=== PATIENT | female | born 1930 | race Hispanic/Latino ===

== ENCOUNTER 2016-08-10 07:37 | Outpatient (CLI) | payer MEDICARE ==
[2016-08-10 09:06] LABS: Hematocrit 40.5 % (30.3-42.9); Hemoglobin 13.1 gm/dl (10.1-14.3); Mean Corpuscular HGB Conc 32 % (30-34); Mean Corpuscular Hemoglobin 29 pg (28-32); Mean Corpuscular Volume 89 fl (79-97); Platelet Count 198 K/mm3 (140-440); Red Blood Count 4.55 M/mm3 (3.65-5.03); Red Cell Distribution Width 15.5 % (13.2-15.2); White Blood Count 7.7 K/mm3 (4.5-11.0)
[2016-08-10 09:11] LABS: Albumin 3.8 g/dL (3.9-5); Albumin/Globulin Ratio 1.1 %; Bilirubin,Total 0.3 mg/dL (0.1-1.2); Calcium 9.1 mg/dL (8.4-10.2); Chloride 101.4 mmol/L (98-107); Total Protein 7.2 g/dL (6.3-8.2)
--- NOTE | 2016-08-10 10:52 | Magnetic Resonance Report ---
MRI BRAIN WITHOUT CONTRAST INDICATION: Dementia. COMPARISON: None similar at this institution. FINDINGS: Noncontrast multiplanar and multisequence MRI of the brain demonstrates symmetric, age appropriate ventricles and sulci. Extensive periventricular and white matter FLAIR and T2 weighted hyperintensities may represent small vessel end artery ischemic disease or vasculitis, amongst others. Small lacunar infarcts as 4 mm in left frontal white matter, axial image 19, series 6. No acute infarct, hemorrhage, mass effect or midline shift. No abnormal extra-axial masses or fluid collections. Normal major intracranial vascular flow voids. 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 Otherwise unremarkable posterior fossa with symmetric seventh and eighth nerve complexes and preserved basilar cisterns. Bilateral cataract surgery. Mild bilateral ethmoid and maxillary sinus mucosal thickening. Clear remainder imaged paranasal sinuses and mastoid air cells. Mild nasal septal deviation. Normal midline structures without evidence of Chiari malformation. CONCLUSION: No acute intracranial MRI abnormality, though extensive white matter microvascular changes noted and few other incidental findings, as above. Please correlate. Thank you for the opportunity to participate in this patient's care.
== END 2016-08-10 07:38 | disposition home or self-care (01) ==
LOC: MRI 07:37
PROVIDERS: ATTEND Specialist
DX: I63.9 Cerebral infarction, unspecified (principal); F02.81 Dementia in other diseases classified elsewhere, unspecified severity, with behavioral disturbance; R90.82 White matter disease, unspecified; J34.2 Deviated nasal septum; Z98.41 Cataract extraction status, right eye; Z98.42 Cataract extraction status, left eye
CPT/HCPCS: 36415; 70551; 80053; 82607; 83921; 84443; 85027; 86592

== ENCOUNTER 2016-09-03 13:18 | Outpatient (CLI) | payer MEDICARE ==
--- NOTE | 2016-09-06 08:27 | Vascular Lab Report ---
CAROTID DUPLEX STUDY: RIGHT PSVEDV CCA PROX:[id number] CCA DIST: 8015 ICA PROX: 6011 ICA MID: 7215 ICA DIST: 5313 ECA: 86 VERT: 40 4 LEFT PSVEDV CCA PROX: 8416 CCA DIST: 7518 ICA PROX: 32 8 ICA MID: 4313 ICA DIST: 6618 ECA: 62 VERT: 53 15 REASON FOR EXAM: CVA. COMMENTS ON THE RIGHT: Doppler frequency analysis is consistent with 16 to 49 percent diameter reduction of the internal carotid artery. Minimal amount of plaque is seen. The common carotid artery is patent. The external carotid artery is patent. The vertebral artery has antegrade flow. COMMENTS ON THE LEFT: Doppler frequency analysis is consistent with 16 to 49 percent diameter reduction of the internal carotid artery. Minimal amount of plaque is seen. The common carotid artery is patent. The external carotid artery is patent. The vertebral artery has antegrade flow. 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 Consider repeat carotid artery duplex in 12 months.
== END 2016-09-03 13:19 | disposition home or self-care (01) ==
LOC: SPVWC 13:18
PROVIDERS: ATTEND Specialist
DX: I65.23 Occlusion and stenosis of bilateral carotid arteries (principal); F02.81 Dementia in other diseases classified elsewhere, unspecified severity, with behavioral disturbance
CPT/HCPCS: 93880